=== PATIENT | male | born 1975 | race Caucasian/White ===

== ENCOUNTER 2018-09-14 05:28 | Emergency (ER) | payer SELFPAY ==
--- NOTE | 2018-09-14 05:36 | ERPHSYRPT ---
- History of Present Illness Time Seen by Provider: 09/14/18 05:33 Source: patient, police Exam Limitations: no limitations Physician History: 42 y/o white male brought into ED by police for [facility] medical clearance. pt has no specific complaints. pt admits to using two xanax a small amt of methamphetamines at approx 7pm to 9pm last pm. no injuries Timing/Duration: today, yesterday Severity of Symptoms-Max: mild Severity of Symptoms-Current: mild Context related to: legal problems Associated Symptoms: denies symptoms Previous symptoms: no prior history Allergies/Adverse Reactions: No Known Drug Allergies Allergy (Unverified 09/14/18 05:45) - Past Medical History Neurological History: No Pertinent History ENT History: No Pertinent History Cardiac History: No Pertinent History Respiratory History: No Pertinent History Endocrine Medical History: No Pertinent History Musculoskeletal History: No Pertinent History GI Medical History: No Pertinent History History: No Pertinent History Psycho-Social History: No Pertinent History - Review of Systems Constitutional: No Symptoms Eyes: No Symptoms Ears, Nose, & Throat: No Symptoms Respiratory: No Symptoms Cardiac: No Symptoms Abdominal/Gastrointestinal: No Symptoms Musculoskeletal: No Symptoms Skin: No Symptoms Neurological: No Symptoms Psychological: No Symptoms Endocrine: No Symptoms Hematologic/Lymphatic: No Symptoms, Easy Bruising All Other Systems: Reviewed and Negative - Nursing Vital Signs Nursing Vital Signs: Initial Vital Signs Temperature 97.9 F 09/14/18 05:35 Pulse Rate 142 H 09/14/18 05:35 Respiratory Rate 24 09/14/18 05:35 Blood Pressure 176/123 09/14/18 05:35 O2 Sat by Pulse Oximetry 98 09/14/18 05:35 Pain Scale Pain Intensity 0 - Physical Exam General Appearance: no apparent distress, alert Eyes, Ears, Nose, Throat Exam: normal ENT inspection, moist mucous membranes Neck Exam: normal inspection, non-tender, supple, full range of motion Respiratory Exam: normal breath sounds, lungs clear, airway intact, No chest tenderness, No respiratory distress Cardiovascular Exam: normal heart sounds, normal peripheral pulses, tachycardia Gastrointestinal/Abdominal Exam: soft, normal bowel sounds, No tenderness Extremities Exam: normal inspection, normal range of motion, No evidence of injury Neurological Exam: alert, normal mood/affect, calm, story teller II-XII nml as tested Appearance: appropriate appearance, appropriate insight, no memory impairment Behavior/Eye Contact/Speech: alert & cooperative, good eye contact Thoughts/Hallucinations: normal thought pattern, no apparent hallucination Skin Exam: normal color, warm, dry SpO2 Interpretation: normal O2 Delivery: Room Air - Course Nursing assessment & vital signs reviewed: Yes EKG Interpreted by Me: RATE ([id number]), Sinus Tach, NORMAL AXIS, NORMAL QRS, NORMAL ST-T, Other (no comparison ekg) Ordered Tests: Active Orders 24 hr Category Date Time Status EKG-ER Only STAT Care 09/14/18 05:36 Active ACETAMINOPHEN Stat Lab 09/14/18 05:52 Completed BMP Stat Lab 09/14/18 05:52 Completed CBC W DIFF Stat Lab 09/14/18 05:52 Completed ETHYL ALCOHOL Stat Lab 09/14/18 05:52 Completed SALICYLATE Stat Lab 09/14/18 05:52 Completed Urine Triage Profile Stat Lab 09/14/18 06:13 Received Medication Summary Discontinued Medications Generic Name Dose Route Start Last Admin Trade Name Freq PRN Reason Stop Dose Admin Lorazepam 1 mg 09/14/18 05:56 09/14/18 06:01 Ativan 2 Mg/1 Ml Vial IM 09/14/18 05:57 1 mg STAT ONE Administration Lorazepam Confirm 09/14/18 06:00 Ativan 2 Mg/1 Ml Vial Administered 09/14/18 06:01 Dose 2 mg .ROUTE .STK-MED ONE Lab/Rad Data: Laboratory Result Diagrams 09/14/18 05:52 09/14/18 05:52 Laboratory Results 09/14/18 09/14/18 Range/Units 05:52 05:52 WBC 13.0 H (4.0-10.5) K/mm3 RBC 4.94 (4.1-5.6) M/mm3 Hgb 15.8 (12.5-18.0) gm/dl Hct 47.2 (42-50) % MCV 95.5 (78-100) fl MCH 32.0 (26-32) pg MCHC 33.5 (32-36) g/dl RDW 13.6 (11.5-14.0) % Plt Count 374 (150-450) K/mm3 MPV 9.6 H (6-9.5) fl Gran % 80.6 H (36.0-66.0) % Eos # (Auto) 0.03 (0-0.5) Absolute Lymphs (auto) 1.45 (1.0-4.6) Absolute Monos (auto) 1.03 (0.0-1.3) Lymphocytes % 11.1 L (24.0-44.0) % Monocytes % 7.9 (0.0-12.0) % Eosinophils % 0.2 (0.00-5.0) % Basophils % 0.2 (0.0-0.4) % Absolute Granulocytes 10.50 H (1.4-6.9) Basophils # 0.03 (0-0.4) Sodium 143 (137-145) mmol/L Potassium 5.2 H (3.5-5.1) mmol/L Chloride 107 (98-107) mmol/L Carbon Dioxide 25 (22-30) mmol/L Anion Gap 15.1 H (5-15) MEQ/L BUN 19 (9-20) mg/dL Creatinine 1.07 (0.66-1.25) mg/dL Estimated GFR > 60.0 ML/MIN Glucose 115 H (74-106) mg/dL Calcium 9.6 (8.4-10.2) mg/dL Salicylates < 1.0 L (2-20) mg/dL Acetaminophen < 10 L (10-30) ug/ml Ethyl Alcohol < 10 (0-10) mg/dL - Progress Progress: improved, re-examined Counseled pt/family regarding: lab results, diagnosis, need for follow-up - Departure Departure Disposition: Care Home/Senior Care Clinical Impression: Medical clearance for incarceration, Methamphetamine addiction, Benzodiazepine abuse Condition: Stable Critical Care Time: No
[2018-09-14] MEDS ORDERED: Ativan 2 MG/1 ML VIAL IM ONE (05:56)
[2018-09-14] MEDS ORDERED: Ativan 2 MG/1 ML VIAL ONE (06:00)
[2018-09-14 06:09] LABS: BASOPHIL % 0.2 % (0.0-0.4); Basophil (Absolute #) 0.03 (0-0.4); Eosinophil % 0.2 % (0.00-5.0); Eosinophil (Absolute #) 0.03 (0-0.5); Granulocytes % 80.6 % (36.0-66.0); Hematocrit 47.2 % (42-50); Hemoglobin 15.8 gm/dl (12.5-18.0); Lymphocyte (Absolute #) 1.45 (1.0-4.6); Lymphocytes % 11.1 % (24.0-44.0); Mean Cell Volume 95.5 fl (78-100); Mean Corpuscular Hgb Concent. 33.5 g/dl (32-36); Mean Platelet Volume 9.6 fl (6-9.5); Monocyte (Absolute #) 1.03 (0.0-1.3); Monocytes % 7.9 % (0.0-12.0); Platelet Count 374 K/mm3 (150-450); Red Blood Count 4.94 M/mm3 (4.1-5.6); Red Cell Distribution Width 13.6 % (11.5-14.0)
[2018-09-14 06:13] LABS: ANION GAP 15.1 MEQ/L (5-15); BLOOD UREA NITROGEN 19 mg/dL (9-20); CHLORIDE 107 mmol/L (98-107); Calcium 9.6 mg/dL (8.4-10.2); Carbon Dioxide 25 mmol/L (22-30); Creatinine 1 1.07 mg/dL (0.66-1.25); Glucose 115 mg/dL (74-106); Potassium 5.2 mmol/L (3.5-5.1); SODIUM 143 mmol/L (137-145)
[2018-09-14 06:26] LABS: ACETAMINOPHEN < 10 ug/ml (10-30); ETHYL ALCOHOL < 10 mg/dL (0-10); SALICYLATE < 1.0 mg/dL (2-20)
[2018-09-14 06:37] LABS: Barbiturate,Urine NEGATIVE (NEGATIVE); Benzodiazepine,Urine POSITIVE (NEGATIVE); Cocaine,Urine NEGATIVE (NEGATIVE); Methadone,Urine NEGATIVE (NEGATIVE); Opiate,Urine NEGATIVE (NEGATIVE); PCP,Urine NEGATIVE (NEGATIVE); THC,Urine POSITIVE (NEGATIVE)
[2018-09-14 07:04] VITALS: BP 172/103; PULSE 125; O2SAT 99
[2018-09-14 07:06] LABS: Amphetamine,Urine POSITIVE (NEGATIVE)
== END 2018-09-14 07:02 | disposition home or self-care (01) ==
LOC: ED 05:28 → EDSEX 05:28 → ED 07:02
DX: Z02.89 Encounter for other administrative examinations (principal); F15.20 Other stimulant dependence, uncomplicated
CPT/HCPCS: 36415; 80048; 80307; 85025; 96372; 99284; G0481; J2060; G0480